=== PATIENT | female | born 1985 | race Caucasian/White ===

== ENCOUNTER 2016-12-23 14:50 | Emergency (ER) | payer BC ==
[~2016-12-23] VITALS: Ht 167.6 cm; Wt 63.0 kg
[~2016-12-23 14:50] MED LIST: IBUP-1222 PO; OXYC-302 PO; PNV11TAB5 PO
[2016-12-23 14:55] VITALS: BP 114/74
[2016-12-23] MEDS ORDERED: LIDOCAINE 1%, 20ML ONE (15:20)
[2016-12-23] MEDS ORDERED: DIPH,PERTUSS(ACELL),TET VAC/PF 0.5 ML IM-VACC ONE ×2 (15:21→15:30)
[2016-12-23] MEDS ORDERED: LIDOCAINE 1%, 20ML SQ ONE (15:30)
== END 2016-12-23 16:12 | disposition home or self-care (01) ==
LOC: ED 16:06
DX: S61.012A Laceration without foreign body of left thumb without damage to nail, initial encounter (principal); W26.8XXA Contact with other sharp object(s), not elsewhere classified, initial encounter; Y93.89 Activity, other specified; Y92.89 Other specified places as the place of occurrence of the external cause; Y99.8 Other external cause status
CPT/HCPCS: 12041; 99284